=== PATIENT | female | born 1950 | race Caucasian/White ===

== ENCOUNTER 2019-02-17 10:17 | Emergency (ER) | payer MEDICARE ==
[~2019-02-17] VITALS: Ht 162.6 cm; Wt 72.7 kg
[~2019-02-17 10:17] MED LIST: ATENOLOL100 MG OR; ATENOLOL25 MG PO; B-12500 MCG SL; BABY ASPIRIN81 MG OR; CIPRO XR1000 MG OR; DIOVAN160 MG PO; FENOFIBRATE160 MG PO; HYDROXYZ HCL10 MG OR; LEVOTHYROXIN150 MCG OR; LEVOTHYROXIN150 MCG PO; LOSARTAN POT100 MG PO; MAREPA1000 MG OR; MULTI VIT OR; MULTIVITAM10 OR; NEXIUM20 M1 PO; SIMVASTATIN40 MG OR; SIMVASTATIN40 MG PO; TYLENOL500 MG OR; ZANTAC150 M1 OR; [UNRECOGNIZED DRUG - OTHER]
[2019-02-17 10:49] LABS: HEMOGLOBIN 15.3 g/dl (12.0-16.0); IMMATURE GRANULOCYTES 0.4 % (0.0-5.0); MEAN CELL VOLUME 91.6 fL CALC (80.0-100.0); MEAN CORPUSCULAR HGB 30.5 pG CALC (26.0-32.0); MEAN CORPUSCULAR HGB CONC 33.3 g/L CALC (32.0-36.0); NEUT# 6.91 thou/uL (2.00-7.15); RED BLOOD COUNT 5.02 mill/uL (4.20-5.60); RED CELL DISTRI WIDTH 13.2 % (11.5-15.5)
[2019-02-17 11:03] LABS: ANION GAP 17 (6-22 (CALC)); BUN 19 mg/dL (8-23); BUN/CREATININE RATIO 28 (12-20 (CALC)); CARBON DIOXIDE 23 mmol/l (22-30); CHLORIDE 107 mmol/l (95-108); CREATININE 0.7 mg/dL (0.5-1.0); GFR > 60 ML/MIN (>=60 (CALC)); GFR FOR AFR.AMER. > 60 ML/MIN (>=60 (CALC)); POTASSIUM 4.3 mmol/l (3.5-5.1); SODIUM 143 mmol/l (137-146)
[2019-02-17 11:31] LABS: ACT PARTIAL THROMBO TIME 23.6 SECONDS (20.0-32.5); INTERNATIONAL NORMALIZED RATIO 0.9 RATIO (0.7-1.3); PROTHROMBIN TIME 9.8 SECONDS (9.0-12.5)
[2019-02-17 11:50] VITALS: BP 189/79
== END 2019-02-17 11:50 | disposition left against medical advice (07) ==
LOC: ED 10:17
PROVIDERS: Family Medicine
DX: I16.0 Hypertensive urgency (principal); F17.210 Nicotine dependence, cigarettes, uncomplicated; R51 Headache; R50.9 Fever, unspecified; R79.89 Other specified abnormal findings of blood chemistry; Z91.19 Patient's noncompliance with other medical treatment and regimen
CPT/HCPCS: J1644